=== PATIENT | female | born 1960 | race Two or more races ===

== ENCOUNTER 2017-01-24 08:26 | Day surgery (SDC) | payer BC ==
[2017-01-24] VITALS (7 sets, daily range): BP systolic 94–105; BP diastolic 60–69
[~2017-01-24] VITALS: Ht 154.9 cm; Wt 65.8 kg
--- NOTE | 2017-01-24 06:42 | Anethesia Preoperative Eval ---
Anesthesia Pre-op PMH/ROS General Date of Evaluation: Jan 24, 2017 Time of Evaluation: 06:42 Anesthesiologist: julián ASA Score: ASA 2 Mallampati Score Class I : Soft palate, uvula, fauces, pillars visible Class II: Soft palate, uvula, fauces visible Class III: Soft palate, base of uvula visible Class IV: Only hard plate visible Mallampati Classification: Class II Surgeon: ronaldo Diagnosis: abdominal pain, colon screening Surgical Procedure: egd/colonoscopy Anesthesia History: none Social History: smoking - nonsmoker Family History: no anesthesia problems Allergies: Coded Allergies: No Known Allergies (Unverified , 01/23/17) Medications: see eMAR Past Medical History Cardiovascular: Reports: other - hypercholestrolemia Pulmonary: Reports: other - pneumonia Anesthesia Pre-op Phys. Exam Physician Exam Last Vital Signs Date Time Temp Pulse Resp B/P (MAP) Pulse Ox O2 Delivery O2 Flow Rate FiO2 01/24/17 08:52 97.5 54 20 105/68 98 Room Air Constitutional: NAD Neurologic: CN 2-12 intact Cardiovascular: RRR Respiratory: CTA Gastrointestinal: S/NT/ND Airway Exam Mallampati Score: Class I MO: full Neck: supple TMD: 2fb ROM: full Anesthesia Pre-op A/P Risk Assessment & Plan Assessment: asa2 Plan: mac Status Change Before Surgery: No Pre-Antibiotics Drug: JUNIE Mendieta Jan 24, 2017 06:42
[2017-01-24] MEDS ORDERED: NKM (09:00)
--- NOTE | 2017-01-24 09:21 | Pre-Procedure Note/Attestation ---
Pre-Procedure Note/Attestation Complete Prior to Procedure Planned Procedure: not applicable Procedure Narrative: esophagogastroduodenoscopy and colonoscopy Indications for Procedure Pre-Operative Diagnosis: screening colon, GERD Attestation I attest that I discussed the nature of the procedure; its benefits; risks and complications; and alternatives (and the risks and benefits of such alternatives ), prior to the procedure, with the patient (or the patient's legal cash applications representative). I attest that, if there was a reasonable possibility of needing a blood transfusion, the patient (or the patient's legal cash applications representative) was given the [facility] standardized written summary, pursuant to the [place] Blood Safety Act ([place] Health and Safety Code # 1645, as amended). I attest that I re-evaluated the patient just prior to the surgery and that there has been no change in the patient's H&P, except as documented below: HAMIDA HERNANDEZ Jan 24, 2017 09:21
--- NOTE | 2017-01-24 09:23 | Short Stay Surgery H&P ---
History of Present Illness History of Present Illness Chief Complaint screenig colon, GERD HPI Aarti Agustin is a 56 year old female who was admitted on for Abdominal Pain,Colon Screening Patient History Allergies: Coded Allergies: No Known Allergies (Unverified , 01/23/17) PAST MEDICAL HISTORY: (1) Hypercholesteremia Past Surgeries: Social History: Medication History Scheduled No Known Medications* (NKM - No Known Medications*), 0 ., (Reported) Review of Systems Cardiovascular: Reports: no symptoms Respiratory: Reports: no symptoms Gastrointestinal: Reports: gastro esophageal reflux disease Genitourinary: Reports: no symptoms Neurologic: Reports: no symptoms Endocrine: Reports: no symptoms Hematologic: Reports: no symptoms Physical Exam Vital Signs Last Vital Signs Date Time Temp Pulse Resp B/P (MAP) Pulse Ox O2 Delivery O2 Flow Rate FiO2 01/24/17 08:52 97.5 54 20 105/68 98 Room Air Skin: normal HENT: normal Heart: normal Lungs: normal Abdomen: normal Extremities: normal Plan Plan of Care egd and colonoscopy Final Diagnosis: Attestation Are the patient's medical conditions optimized for surgery? Attestation Response: yes HAMIDA HERNANDEZ Jan 24, 2017 09:23
[2017-01-24] MEDS ORDERED: Propofol 200mg/20ml IV ONE (09:30)
[2017-01-24] MEDS ORDERED: Lidocaine 1% MPF 10mg/ml 5ml ONE (09:30)
[2017-01-24] MEDS ORDERED: Midazolam 2mg/2ml Inj IVP PRN (09:45)
[2017-01-24] MEDS ORDERED: fentaNYL 100 mcg/2 mL IV PRN (09:45)
[2017-01-24] MEDS ORDERED: DiphenhydrAMINE 50mg/ml Inj IVP PRN (09:45)
[2017-01-24] MEDS ORDERED: Atropine Inj 1mg/10ml Syr IV PRN (09:45)
--- NOTE | 2017-01-24 10:16 | Endoscopy Procedure Note ---
Endoscopy Procedure Note Indication for Procedure: screening colon, GERD Procedures Performed: EGD, colonoscopy Operative Findings/Diagnosis: gastritis, one colon polyp Specimen: yes Pt Tolerated Procedure Well: Yes Estimated Blood Loss: none Anesthesiologist: julián Anesthesia: MAC Implant(s) used?: No 50 yrs or older w/o bx or poly: No 10yrs. F/U not recommended: Yes If not recommended, why?: Above average risk 10 yrs. F/U needed: Yes 18 years or older w/prev. colo: No HAMIDA HERNANDEZ Jan 24, 2017 10:16
--- NOTE | 2017-01-24 10:37 | Immediate Post-Op Evaluation ---
Immediate Post-Op Evalulation Immediate Post-Op Evalulation Procedure: egd/colonoscopy Date of Evaluation: Jan 24, 2017 Time of Evaluation: 10:33 IV Fluids: 250ml 0.9ns Blood Products: none Estimated Blood Loss: negligible Blood Pressure Systolic: 94 Blood Pressure Diastolic: 60 Pulse Rate: 54 Respiratory Rate: 18 O2 Sat by Pulse Oximetry: 100 Temperature (Fahrenheit): 97.2 Pain Score (1-10): 0 Nausea: No Vomiting: No Complications none Patient Status: awake, reacts, patent Hydration Status: adequate Drug: JUNIE Mendieta Jan 24, 2017 10:37
--- NOTE | 2017-01-24 10:38 | 48 Hour Post Anesthesia Eval ---
Post Anesthesia Evaluation Procedure: egd/colonoscopy Date of Evaluation: Jan 24, 2017 Time of Evaluation: 10:37 Blood Pressure Systolic: 94 0: 60 Pulse Rate: 54 Respiratory Rate: 18 Temperature (Fahrenheit): 97.2 O2 Sat by Pulse Oximetry: 100 Airway: patent Nausea: No Vomiting: No Pain Intensity: 0 Hydration Status: adequate Cardiopulmonary Status: stable Mental Status/LOC: patient returned to baseline Post-Anesthesia Complications: none Follow-up care needed: N/A JUNIE INTERIANO Jan 24, 2017 10:38
--- NOTE | 2017-01-24 21:30 | Procedure Note ---
DATE OF PROCEDURE: 01/24/2017 SURGEON: Hero Lopes M.D. PROCEDURE: Upper endoscopy with biopsy and colonoscopy with biopsy. ANESTHESIA: Per Kalee Santiago M.D. INSTRUMENT: Olympus adult flexible upper endoscope and colonoscope. Indication: Screening colonoscopy evaluation and right upper quadrant abdominal pain. Reason for Procedure: The procedure, risks, benefits, and possible consequences, including hemorrhage, aspiration, perforation and infection, and alternative treatments, were explained to the patient/legal guardian by Dr. Hero Lopes and the patient/legal guardian understood and accepted these risks. Procedure In Detail: After informed consent was obtained and the patient was adequately sedated, Olympus upper endoscope was advanced from mouth into the second portion of the duodenum and retroflexion was performed in the stomach. The patient has diffuse gastritis. Random biopsy from antrum and body was obtained to rule out H. pylori infection. The rest of the upper endoscopic exam looks within normal limits. At this time, the upper endoscope was retrieved. The patient was turned over for colonoscopy. First, a rectal exam was performed, which was normal. Then, the scope was advanced from the rectum into the cecum and then subsequently to the terminal ileum. Quality of prep was very good. The patient had a normal colonoscopy examination. One diminutive polyp was found in the sigmoid, which was removed with cold biopsy forceps technique. Retroflexion of rectum showed evidence of few nonbleeding internal hemorrhoids. The patient tolerated the procedure without any complication. SUMMARY FINDINGS: 1. Diffuse gastritis status post biopsy. 2. One colonic polyp removed, see above for details. 3. Internal hemorrhoids. RECOMMENDATIONS: Follow biopsy results and treat accordingly. Hero Lopes M.D. DR: LICO JOB#: [id number] CC:
--- NOTE | 2017-02-16 17:53 | Cardiology Report ---
APPROVED REPORT EKG Measurement Heart [id number] Sinus bradycardia Otherwise normal ECG
== END 2017-01-24 11:30 | disposition home or self-care (01) ==
LOC: GAS 08:26
DX: Z12.11 Encounter for screening for malignant neoplasm of colon (principal); K29.50 Unspecified chronic gastritis without bleeding; R10.11 Right upper quadrant pain; K63.5 Polyp of colon; K64.8 Other hemorrhoids
CPT/HCPCS: 43239; 45380; 93005; J2704; 94003; 94150